=== PATIENT | female | born 1985 | race Caucasian/White ===

== ENCOUNTER 2016-09-02 19:21 | Inpatient (IN) | payer MEDICAID ==
[~2016-09-02] VITALS: Ht 152.4 cm; Wt 92.1 kg
[2016-09-02 21:58] LABS: HEMATOCRIT 37.6 % (36.0-48.0); HEMOGLOBIN 12.5 g/dL (12-16); MCH 29.3 pg (26.0-34.0); MCHC 33.2 g/dL (31.0-37.0); MCV 88.1 fL (80.0-100.0); MEAN PLATELET VOLUME 10.8 fL (7.4-10.4); RBC 4.27 10x6/uL (4.00-5.40); RDW 14.1 % (11.5-14.5); WBC 10.2 10x3/uL (4.8-10.8)
[2016-09-02 22:41] LABS: APPEARANCE CLEAR (CLEAR); BILIRUBIN NEGATIVE (NEGATIVE); COLOR YELLOW (YELLOW); GLUCOSE NEGATIVE (NEGATIVE); KETONE NEGATIVE (NEGATIVE); LEUKOCYTE ESTERASE NEGATIVE (NEGATIVE); NITRITE NEGATIVE (NEGATIVE); PROTEIN NEGATIVE (NEGATIVE); SPECIFIC GRAVITY 1.005 (1.005-1.020); UROBILINOGEN NORMAL (NORMAL)
--- NOTE | 2016-09-02 22:53 | NUR ---
PT WITH FULL ROM OF BLE AND ABLE TO BEAR WT IN BED ON BLE. VOIDED 600 MLS CLEAR YELLOW URINE WITH 2 DIME SIZED BLOOD CLOT. FUNDUS FIRM U1, MODERATE AMT RUBRA LOCHIA PRESENT. B/P REMAINS ELEVATED. PT CONTINUES TO REFUSE VELASCO CATH AT THIS TIME STATING THAT IT CAUSES HER MORE PAIN AND DISCOMFORT, REQUESTS TO CONT TO VOID ON BEDPAN. PT TRANSFERRED VIA W/C TO ROOM 1274. ICE CHIPS GIVEN. ICE PACK APPLIED TO PERINUM.
--- NOTE | 2016-09-03 02:28 | NUR ---
PT TRANSFERERD TO ROOM 1273 TO [facility] WITH PP CARE. VSS. PT ORIENTED TO ROOM. CL/PHONE PLACED WITHIN REACH. ICE WATER GIVEN. SPOUSE AT BEDSIDE AND SUPPORTIVE OF PT. DENIES PAIN AT THIS TIME.
--- NOTE | 2016-09-03 03:49 | NUR ---
ROUNDS MADE, PT SLEEPING AT THIS TIME. RESPIRATIONS REGULAR, NO S/S OF DISTRESS NOTED. BED IN LOW POSITION, CL/PHONE WITHIN REACH.
--- NOTE | 2016-09-03 04:45 | NUR ---
ROUNDS MADE. PT OPENED EYES WHEN DOOR OPENED. REQUESTED THAT BE BROUGHT TO ROOM SUGEY, UPDATED THAT NBN RN ESTIMATED THAT COULD COME TO ROOM AROUND 0530, PT VERBALIZED UNDERSTANDING. DENIES PAIN. STATES THAT SHE HAS GOTTEN UP TO VOID INDEPENDENTLY WITHOUT DIFFICULTY. MODERATE AMT NADIA DEVINE NOTED TO PERIPADS THAT PT CHANGED, NO CLOTS. DENIES NEEDS AT THIS TIME.
--- NOTE | 2016-09-03 06:14 | NUR ---
ROUNDS MADE. PT REPORTS THAT SHE IS HAVING SOME CRAMPING, DENIES NEED FOR PAIN MEDICATION AT THIS TIME. ICE WATER GIVEN. PT BONDING WITH AT THIS TIME. SPOUSE AT BEDSIDE AND SUPPORTIVE OF PT. BED IN LOW POSITION. CL/PHONE WITHIN REACH.
[2016-09-03] MEDS ORDERED: FLAGYL500 MG PO (06:26)
[2016-09-03] MEDS ORDERED: PRENATAL COMPLE1 TAB PO (06:26)
[2016-09-03 06:27] VITALS: BP 122/67; Ht 152.4 cm; Wt 92.1 kg
--- NOTE | 2016-09-03 07:25 | NUR ---
ASSUMED CARE OF THIS PATIENT. CURRENTLY SITTING UP IN BED INFANT. REGULAR BREAKFAST AT BEDSIDE. DENIES PAIN OR NEEDING ANYTHING AT THIS TIME. SIDE RAILS UP X2. CALL LIGHT IN REACH. WILL COMPLETE SHIFT ASSESSMENT AFTER AND BREAKFAST.
--- NOTE | 2016-09-03 08:50 | NUR ---
SITTING IN BED WITH EYES CLOSED. , ASLEEP ON CHEST. REMINDED PT THAT NEEDS TO BE IN CRIB IF SHE PLANS TO SLEEP. VERBALIZED UNDERSTANDING.
[2016-09-03 09:22] VITALS: BP 128/74
--- NOTE | 2016-09-03 09:31 | NUR ---
SITTING UP IN BED WITH IN ARMS. SHIFT ASSESSMENT COMPLETED. 2/U AND DEVIATED TO RIGHT. RUBRA SMALL TO MOD. UP TO BATHROOM TO VOID. LISA WELL. DENIES NEED FOR PAIN MEDICATION AT THIS TIME. DESIRES TO WAIT ON SHOWER TILL SPOUSE RETURNS. SIDE RAILS UP, CALL LIGHT IN REACH, CURRENTLY IN CRIB.
--- NOTE | 2016-09-03 10:30 | NUR ---
SITTING SEMI FOWLERS POSITION. DENIES NEEDING ANYTHING. DESIRES TO REST UNTIL NEXT AT 1100. FOB IN ROOM HOLDING INFANT. LIGHTS TURNED ON LOW. SIDE RAILS UP X2, CALL LIGHT IN REACH. PT INSTRUCTED TO CALL IF ANYTHING IS NEEDED. VERBALIZED UNDERSTANDING.
--- NOTE | 2016-09-03 11:45 | NUR ---
SITTING UP IN BED PREPARING TO EAT LUNCH. REQUEST THAT BE TAKEN TO NURSERY FROM [phone] FOR VIEWING BY VISITORS. REQUESTED ICE. NO OTHER REQUESTS OR NEEDS AT THIS TIME. FOB AND INFANT IN ROOM.
[2016-09-03 12:15] LABS: BASOPHILS 0.1 % (0.0-2.0); EOSINOPHILS 0.6 % (0-7); HEMATOCRIT 35.4 % (36.0-48.0); HEMOGLOBIN 11.9 g/dL (12-16); IMMATURE GRANULOCYTES 0.5 % (0-5); LYMPHOCYTES 13.6 % (15-50); MCH 29.5 pg (26.0-34.0); MCHC 33.6 g/dL (31.0-37.0); MCV 87.6 fL (80.0-100.0); MEAN PLATELET VOLUME 10.3 fL (7.4-10.4); MONOCYTES 8.9 % (2-11); NEUTROPHILS 76.3 % (40-80); PLATELET COUNT 179 10x3/uL (130-400); RBC 4.04 10x6/uL (4.00-5.40); RDW 14.1 % (11.5-14.5)
[2016-09-03 12:16] LABS: WBC 16.3 10x3/uL (4.8-10.8)
--- NOTE | 2016-09-03 12:35 | NUR ---
INFANT TO NURSERY PER PATIENT REQUEST. FRESH ICE PACK TO PERINEUM REQUESTED BY PATIENT. WILL INSTRUCT ON USE OF EPIFOAM, TUCKS AND DERMOPLAST SPRAY FOR RELIEF OF MINOR PERINEAL PAIN. FOB IN ROOM. VISITORS HERE. PLANS TO SHOWER LATER. TO CALL RN WHEN READY.
--- NOTE | 2016-09-03 13:55 | NUR ---
PT SHOWERED AND LINENS CHANGED. NO REQUESTS AT THIS TIME.
--- NOTE | 2016-09-03 15:02 | NUR ---
SITTING UP IN BED. VISITORS IN ROOM ALONG WITH INFANT AND FOB. DISCUSSED USE OF DERMOPLAST, EPIFOAM AND TUCKS PADS FOR PERINEAL DISCOMFORT. INSTRUCTED TO CALL WHEN READY TO USE AFTER VISITORS LEAVE. SIDE RAILS UP X 2, CALL LIGHT IN REACH. NO REQUESTS AT THIS TIME.
--- NOTE | 2016-09-03 16:42 | NUR ---
SITTING UP IN BED . DENIES NEEDING ANYTHING AT THIS TIME. FOB AND VISITORS IN ROOM. CALL LIGHT IN REACH.
[2016-09-03 17:28] VITALS: BP 124/77
--- NOTE | 2016-09-03 17:30 | NUR ---
SITTING UP IN BED EATING DINNER. ASKED FOR ADDITIONAL ITEMS FOR HAMBURGER. KITCHEN NOTIFIED. VISITORS AND IN ROOM. NO OTHER REQUESTS.
--- NOTE | 2016-09-03 19:35 | NUR ---
NBN RN IN ROOM DISCUSSING INFORMATION WITH PT AND SPOUSE. ICE WATER AND ICE CHIPS GIVEN PER REQUEST. RN TO COMPLETE ASSESSMENT WHEN NBN RN FINISHES DISCUSSION WITH PT AND SPOUSE.
[2016-09-03 20:08] VITALS: BP 117/61
--- NOTE | 2016-09-03 20:08 | NUR ---
HAYLEY RN COMPLETED DISCUSSION WITH PT AND SPOUSE. SHIFT ASSESSMENT COMPLETED. PT SITTING IN BED WITH HOB ELEVATED TO 45 DEGREES HOLDING INFANT AT THIS TIME. SPOUSE AT BEDSIDE, SUPPORTIVE OF PT. VSS. FUNDUS FIRM, U3 WITH SMALL AMT RUBRA LOCHIA TO PERIPAD, NO CLOTS. PT REPORTS THAT THROUGHOUT THE DAY LOCHIA HAS BEEN LIKE A NORMAL PERIOD, WITH "OCCASIONAL SMALL" CLOTS. Pain 2/10, INTERMITTENT ABD CRAMPING AND SORENESS TO PERINUM. REVIEWED USE OF TUX PADS, DERMAPLAST, AND EPIFOAM, PT VERBALIZED UNDERSTANDING AND REPORTS THAT TUX PADS HAVE HELPED HER THE MOST. PT ALSO REPORTS THAT SHE IS CONTINUING TO USE BETADINE WASH FOLLOWING EACH VOID. INSTRUCTED ON EXPECTED LOCHIA AMT/DURATION/APPEARANCE DURING THE POST PERIOD, VERBALIZED UNDERSTANDING AND REMEMBERING FROM PREVIOUS BIRTHS. INSTRUCTED ON NOTHING IN VAGINAL TRACT FOR 6 WEEKS OR UNTIL CLEARED BY MD, VERBALIZED UNDERSTANDING. EDUCATION PROVIDED ON ON S/S OF INFECTION TO REPORT IMMEDIATELY IF NOTED ON D/C, PT AND SPOUSE BOTH VERBALIZED UNDERSTANDING. BOWEL SOUNDS PRESENT AND ACTIVE X4 QUADS, PT STATES THAT SHE HAS NOT HAD BM BUT IS PASSING GAS. DENIES NEEDS AT THIS, REINFORCED USE OF CL FOR NEEDS, VERBALIZED UNDERSTANDING.
--- NOTE | 2016-09-03 20:59 | NUR ---
MILK OF MAG GIVEN PER ORDERS. MED DISCUSSED WITH PT, SIDE EFFECTS EXPLAINED, VERBALIZED UNDERSTANDING. INFANT AT BEDSIDE SLEEPING IN CRIB. SPOUSE AT BEDSIDE, REMAINS SUPPORTIVE OF PT, DENIES NEEDS AT THIS TIME.
--- NOTE | 2016-09-03 22:10 | NUR ---
ROUNDS MADE. PT RESTING WITH EYES CLOSED, RESPRIATIONS REGULAR, NO S/S OF DISTRESS. SPOUSE AT BEDSIDE, HOLDING AT THIS TIME.
--- NOTE | 2016-09-04 00:08 | NUR ---
ROUNDS MADE, INFANT IN NBN AT THIS TIME. PT STATES THAT SHE SENT HIM IN FOR THE HEARING SCREEN AND HIS WEIGHT TO BE DONE. ICE WATER GIVEN. DENIES ADDITIONAL NEEDS AT THIS TIME. STATES THAT SHE HAS VOIDED X2 WITHOUT DIFFICULTY. SPOUSE REMAINS AT BEDSIDE. BED IN LOW POSITION, CL/PHONE WITHIN REACH.
--- NOTE | 2016-09-04 02:04 | NUR ---
ROUNDS MADE. PT SLEEPING AT THIS TIME. RESPIRATIONS REGULAR, NO S/S OF DISTRESS NOTED. INFANT IN NBN AT THIS TIME.
--- NOTE | 2016-09-04 04:03 | NUR ---
ROUNDS MADE. PT SITTING UP IN BED BONDING WITH . STATES THAT SHE JUST COMPLETED . ICE WATER GIVEN PER REQUEST. C/O ABD CRAMPING 2-10/06, MOTRIN OFFERED AND DECLINED BY PT. STATES THAT CRAMPING ONLY LASTS A SHORT TIME FOLLOWING AND IS TOLERABLE. INSTRUCTED TO NOTIFY RN IF NEED FOR PAIN MEDICATION ARISES, VERBALIZED UNDERSTANDING. SPOUSE REMAINS AT BEDSIDE, VERY SUPPORTIVE OF PT. BED IN LOW POSITION. CL/PHONE WITHIN REACH. WILL CONT TO MONITOR AND ASSIST PRN.
--- NOTE | 2016-09-04 06:02 | NUR ---
ROUNDS MADE. PT BREAST FEEDING INFANT. DENIES NEEDS AT THIS TIME. DENIES PAIN. ICE WATER GIVEN PER REQUEST. REPORTS THAT SHE HAS VOIDED X2 SINCE 0200 WITHOUT DIFFICULTY.
--- NOTE | 2016-09-04 07:05 | NUR ---
BEDSIDE REPORT REC'D FROM Bill ASCENCIO RN. PT CURRENTLY AMBULATING IN ROOM. PAIN ASSESSED. PT CURRENTLY REPORTS ABD CRAMPING. REQUEST MOTRIN WHE HER BREAKFAST TRAY IS SERVED.
[2016-09-04 07:15] VITALS: BP 121/72
--- NOTE | 2016-09-04 07:15 | NUR ---
THIS RN TO BEDSIDE. SHIFT ASSESSMENT COMPLETED AT THIS TIME. BREATH SOUNDS C/=, ABD SOFT,NON DISTENDED. FUNDUS FIRM,U/2, PT REPORTS SMALL LOCHIA. PT REPORTS PASSING FLATUS, BUT DENIES BM OF YET. PEDAL PULSES PRESENT X 2. NO EDEMA NOTED. V/S STABLE. SEE FLOWSHEET. PT CURRENTLY RATES ABD CRAMPING 4/10. PLAN TO MEDICATE W/BREAKFAST. PT DENIES FURTHER NEEDS AT THIS TIME.
--- NOTE | 2016-09-04 07:24 | NUR ---
BREAKFAST TRAY SERVED. PT MEDICATED W/MOTRIN 600MG PO. CONTINUED POC DISCUSSED W/PT. PT VERBALIZES UNDERSTANDING AND IS AGREEABLE.
--- NOTE | 2016-09-04 08:11 | NUR ---
THIS RN TO ROOM. PT CURRENTLY TALKING ON PHONE. THIS RN TO RETURN TO ROOM.
--- NOTE | 2016-09-04 08:33 | NUR ---
THIS RN RETURNS TO BEDSIDE. PT CURRENTLY RECLINED IN BED. PT HAS FINISHED BREASKFAST TRAY. PAIN REASSESSED. PT REPORTS PAIN 0/10. DTAP INFO SHEET PROVIDED W/RECOMMENDATION THAT SHE RECEIVE IMMUNIZATION. TEACHING PROVIDED. PT DENIES NEEDS AT THIS TIME. BREAKFAST TRAY REMOVED FROM PT'S ROOM AT THIS TIME.
--- NOTE | 2016-09-04 08:53 | NUR ---
INFANT TRANSPORTED VIA CRIB PER HAYLEY JACKSON RN TO ROOM AT THIS TIME FOR NURSING.
--- NOTE | 2016-09-04 09:30 | NUR ---
ROUNDS MADE. PT CURRENTLY LYING IN BED W/ ON HER CHEST. FOB AT BEDSIDE. PT DENIES PAIN OR NEEDS AT THIS TIME.
[2016-09-04] MEDS ORDERED: IBUPROFEN600 MG PO (09:40)
[2016-09-04] MEDS ORDERED: PERCOCET 5-3251 TAB PO (09:41)
--- NOTE | 2016-09-04 10:30 | NUR ---
THIS RN TO BEDSIDE. DISCHARGE TEACHING PROVIDED. DISCHARGE PAPERS SIGNED AND DISCHARGE PAPERS,PRESCRIPTIONS AND APPT CARD PROVIDED. PT OFFERED DTAP AGAIN AT [facility]. PT STILL DECLINES IMMUNIZATION AT THIS TIME. PT VERBALIZES DISCHARGE INSTRUCTIONS. DENIES QUESTIONS AT THIS TIME. PT PLANS TO NURSE INFANT BEFORE BEING DISCHARGED HOME. PT TO NURSE AT THIS TIME.
--- NOTE | 2016-09-04 11:32 | NUR ---
ROUNDS MADE. PT UP AMBULATING IN ROOM. INFANT UP IN FOB ARMS. PT DENIES PAIN OR NEEDS AT PRESENT.
--- NOTE | 2016-09-04 12:20 | NUR ---
ROUNDS MADE. PT PROPPED UP IN BED AWAKE W/INFANT UP IN ARMS. PT DENEIS PAIN OR NEEDS AT THIS TIME. DECLINES OFFER TO FRESHEN HER ICE WATER. LUNCH TRAY REMOVED FROM PT'S ROOM.
--- NOTE | 2016-09-04 13:10 | NUR ---
DR PAYNE TO PT'S ROOM TO SEE PT. STATES WHILE AT NURSING STATION "ONE MORE LAB NEEDS TO BE PERFORMED BEFORE DISCHARGE, BUT DISCHARGE TODAY IS STILL ANTICIPATED."
--- NOTE | 2016-09-04 13:20 | NUR ---
ROUNDS MADE. PT CURRENTLY NURSING INFANT AT THIS TIME. DENIES NEEDS.
--- NOTE | 2016-09-04 14:25 | NUR ---
PT RINGS CALL LIGHT. THIS RN TO BEDSIDE. PT HAS PLACED IN CAR SEAT IN AN APPROPRIATE MANNER. PT AND INFANT DISCHARGED HOME. TRANPORTED VIA W/C TO AWAITING PERSONAL CAR TO BE DRIVEN HOME BY SPOUSE.
[2016-09-05 06:13] LABS: RAPID PLASMA REAGIN Non Reactive (Non Reactive)
== END 2016-09-04 14:25 | disposition home or self-care (01) | DRG 775 ==
LOC: D.LDO 19:21 → D.LD 19:54
PROVIDERS: ADMIT Specialist
PROC: 10E0XZZ Delivery of Products of Conception, External Approach (ICD-10-PCS; principal; 2016-09-03)
DX: O99.214 Obesity complicating childbirth (principal); Z68.41 Body mass index [BMI] 40.0-44.9, adult; E66.01 Morbid (severe) obesity due to excess calories; Z3A.37 37 weeks gestation of pregnancy; Z37.0 Single live birth; O32.6XX0 Maternal care for compound presentation, not applicable or unspecified; O36.63X0 Maternal care for excessive fetal growth, third trimester, not applicable or unspecified